=== PATIENT | female | born 1980 | race Caucasian/White ===

== ENCOUNTER 2016-08-17 10:42 | Outpatient (CLI) | payer BC ==
[~2016-08-17] VITALS: Ht 172.7 cm; Wt 77.1 kg
[~2016-08-17 10:42] MED LIST: BIRTH CONTROL PO; HYDR1TAB8 OP; NITR-65 PO; ONDAN4ODT PO
[2016-08-17 10:50] VITALS: BP 121/84
[2016-08-17] MEDS ORDERED: NS W/KCL 20 MEQ/L 1,000 ML IV ONE (11:00)
[2016-08-17 11:08] LABS: BASOPHILS % (AUTO) 0 % (0-10); EOSINOPHILS % (AUTO) 0 % (0-10); LYMPHOCYTES # (AUTO) 1.2 X 10^3 (1.0-4.0); LYMPHOCYTES % (AUTO) 22 % (12-44); MEAN CORPUSCULAR HEMOGLOBIN 28 PG (25-34); MEAN CORPUSCULAR HGB CONC 34 G/DL (32-36); MEAN CORPUSCULAR VOLUME 84 FL (80-99); MEAN PLATELET VOLUME 11.1 FL (7.4-10.4); MONOCYTES # (AUTO) 0.3 X 10^3 (0.0-1.0); MONOCYTES % (AUTO) 6 % (0-12); NEUTROPHILS # (AUTO) 3.8 X 10^3 (1.8-7.8); NEUTROPHILS % (AUTO) 71 % (42-75); PLATELET COUNT 154 10^3/uL (130-400); RED BLOOD COUNT 4.68 10^6/uL (4.35-5.85); RED CELL DISTRIBUTION WIDTH 13.4 % (10.0-14.5); WHITE BLOOD COUNT 5.3 10^3/uL (4.3-11.0)
[2016-08-17 11:42] LABS: ALANINE AMINOTRANSFERASE 10 U/L (0-55); ALBUMIN 4.2 G/DL (3.2-4.5); ANION GAP 11 MMOL/L (5-14); ASPARTATE AMINO TRANSFERASE 19 U/L (5-34); BILIRUBIN,TOTAL 0.7 MG/DL (0.1-1.0); BLOOD UREA NITROGEN 18 MG/DL (7-18); BUN/CREATININE RATIO 23; CALCIUM 8.7 MG/DL (8.5-10.1); CARBON DIOXIDE 22 MMOL/L (21-32); CHLORIDE 108 MMOL/L (98-107); GFR ESTIMATED > 60; GLUCOSE 93 MG/DL (70-105); POTASSIUM 3.7 MMOL/L (3.6-5.0); SODIUM 141 MMOL/L (135-145); TOTAL PROTEIN 7.2 G/DL (6.4-8.2)
[2016-08-18] MEDS ORDERED: ONDA8TAB13 PO (15:18)
[2016-08-18] MEDS ORDERED: FAMO-119 PO (15:18)
[2016-08-18] MEDS ORDERED: ALPR0.254 PO (15:18)
== END 2016-08-17 12:50 ==
LOC: SDC 10:42
PROVIDERS: ATTEND Nurse Practitioner
DX: E86.0 Dehydration (principal); R11.2 Nausea with vomiting, unspecified; R19.7 Diarrhea, unspecified; R00.2 Palpitations
CPT/HCPCS: 36415; 80053; 85025; 93005

== ENCOUNTER 2016-08-18 10:40 | Emergency (ER) | payer BC ==
[~2016-08-18] VITALS: Ht 172.7 cm; Wt 77.1 kg
[2016-08-18] MEDS ORDERED: NS IV 1000 ML 1,000 ML ONE (11:13)
[2016-08-18] MEDS ORDERED: ONDANSETRON 4 MG/2 ML (SDV) Z0FRAN ONE (11:13)
[2016-08-18] MEDS ORDERED: NS IV 1000 ML 1,000 ML IV ONE ×2 (11:17→12:35)
[2016-08-18] MEDS ORDERED: ONDANSETRON 4 MG/2 ML (SDV) Z0FRAN IVP ONE ×2 (11:30→13:30)
[2016-08-18 11:59] LABS: BASOPHILS % (AUTO) 0 % (0-10); EOSINOPHILS % (AUTO) 0 % (0-10); LYMPHOCYTES # (AUTO) 1.3 X 10^3 (1.0-4.0); LYMPHOCYTES % (AUTO) 23 % (12-44); MEAN CORPUSCULAR HEMOGLOBIN 29 PG (25-34); MEAN CORPUSCULAR HGB CONC 34 G/DL (32-36); MEAN CORPUSCULAR VOLUME 84 FL (80-99); MEAN PLATELET VOLUME 11.9 FL (7.4-10.4); MONOCYTES # (AUTO) 0.3 X 10^3 (0.0-1.0); MONOCYTES % (AUTO) 5 % (0-12); NEUTROPHILS # (AUTO) 4.1 X 10^3 (1.8-7.8); NEUTROPHILS % (AUTO) 71 % (42-75); PLATELET COUNT 164 10^3/uL (130-400); RED BLOOD COUNT 4.68 10^6/uL (4.35-5.85); RED CELL DISTRIBUTION WIDTH 13.5 % (10.0-14.5); WHITE BLOOD COUNT 5.7 10^3/uL (4.3-11.0)
--- NOTE | 2016-08-18 12:03 | ED General ---
General Chief Complaint: Cough/Cold/Flu Symptoms Stated Complaint: FLU SYMPTOMS/HEART RACING Nursing Triage Note: PT CO OF HEART RACING, VOMITING, DIARRHEA SINCE TUESDAY. HAD IV FLUIDS YESTERDAY NOT HELPING. HAD FEVER AND STREP THROAT Nursing Sepsis Screen: No Definite Risk Source of Information: Patient, Spouse Exam Limitations: No Limitations History of Present Illness Time Seen by Provider: 12:02 Allergies and Home Medications Allergies Coded Allergies: No Known Drug Allergies (Verified , 06/21/07) Home Medications Hydrocodone Bit/Ibuprofen 1 Each Tablet, 1-2 EACH OP Q 4 - 6 HRS PRN, #20 Ref 0 FOR PAIN Prescribed by: LARS KENNEDY on 11/02/09901 Nitrofurantoin/Nitrofuran Mac 100 Mg Capsule, 1 EACH PO BID, #20 Ref 0 FOR INFECTION Prescribed by: LARS KENNEDY on 11/02/09901 Ondansetron Hcl 4 Mg Tab, 4 MG PO Q4H, #5 Ref 0 FOR NAUSEA AND VOMITING Prescribed by: LARS KENNEDY on 11/02/09901 [ Control] , PO DIALY, (Reported) Past Ukdkart-Sbyrqm-Gcwihp Hx Patient Social History Alcohol Use: Denies Use Recreational Drug Use: No Smoking Status: Never a Smoker Recent Foreign Travel: No Contact w/Someone Who Travel: No Recent Infectious Disease Expo: No Recent Hopitalizations: No Seasonal Allergies Seasonal Allergies: No Surgeries HX Surgeries: Yes (C-SECTIONS X2) Surgeries: Section Respiratory Hx Respiratory Disorders: Yes (08/06/16 ONSET OF COUGH, SORE THROAT, FEVER) Cardiovascular Hx Cardiac Disorders: Yes (08/14/16 NEW ONSET PALPITATIONS W N/V, DIARRHEA) Cardiac Disorders: Palpitations Neurological Hx Neurological Disorders: No Reproductive System Hx Reproductive Disorders: No Genitourinary Hx Genitourinary Disorders: No Gastrointestinal Hx Gastrointestinal Disorders: Yes (08/13/16 ONSET OF N/V, DIARRHEA) Musculoskeletal Hx Musculoskeletal Disorders: No Endocrine Hx Endocrine Disorders: No HEENT HX ENT Disorders: No Cancer Hx Cancer: No Psychosocial Hx Psychiatric Problems: No Integumentary HX Skin/Integumentary Disorder: No (DARK PINK JASON LEFT INNER FOREARM) Blood Transfusions Hx Blood Disorders: No Physical Exam Vital Signs Vital Sign - Last 12Hours 08/18/16 10:45 Temp 98.9 Pulse 87 Resp 20 B/P (MAP) 143/85 Pulse Ox 100 Capillary Refill : Less Than 3 Seconds Progress/Results/Core Measures Results/Orders Lab Results Laboratory Tests Test 08/18/16 10:57 08/18/16 13:10 08/18/16 13:52 Range/Units White Blood Count 5.7 4.3-11.0 10^3/uL Red Blood Count 4.68 4.35-5.85 10^6/uL Hemoglobin 13.4 11.5-16.0 G/DL Hematocrit 39 35-52 % Mean Corpuscular Volume 84 80-99 FL Mean Corpuscular Hemoglobin 29 25-34 PG Mean Corpuscular Hemoglobin Concent 34 32-36 G/DL Red Cell Distribution Width 13.5 10.0-14.5 % Platelet Count 164 130-400 10^3/uL Mean Platelet Volume 11.9 H 7.4-10.4 FL Neutrophils (%) (Auto) 71 42-75 % Lymphocytes (%) (Auto) 23 12-44 % Monocytes (%) (Auto) 5 0-12 % Eosinophils (%) (Auto) 0 0-10 % Basophils (%) (Auto) 0 0-10 % Neutrophils # (Auto) 4.1 1.8-7.8 X 10^3 Lymphocytes # (Auto) 1.3 1.0-4.0 X 10^3 Monocytes # (Auto) 0.3 0.0-1.0 X 10^3 Eosinophils # (Auto) 0.0 0.0-0.3 10^3/uL Basophils # (Auto) 0.0 0.0-0.1 10^3/uL Sodium Level 141 135-145 MMOL/L Potassium Level 3.6 3.6-5.0 MMOL/L Chloride Level 109 H 98-107 MMOL/L Carbon Dioxide Level 23 21-32 MMOL/L Anion Gap 9 5-14 MMOL/L Blood Urea Nitrogen 16 7-18 MG/DL Creatinine 0.84 0.60-1.30 MG/DL Estimat Glomerular Filtration Rate > 60 BUN/Creatinine Ratio 19 Glucose Level 94 70-105 MG/DL Calcium Level 8.6 8.5-10.1 MG/DL Total Bilirubin 0.6 0.1-1.0 MG/DL Aspartate Amino Transf (AST/SGOT) 17 5-34 U/L Alanine Aminotransferase (ALT/SGPT) 10 0-55 U/L Alkaline Phosphatase 64 40-136 U/L Total Protein 7.3 6.4-8.2 G/DL Albumin 4.2 3.2-4.5 G/DL Lipase 14 8-78 U/L Urine Color YELLOW Urine Clarity SLIGHTLY CLOUDY Urine pH 6.5 5-9 Urine Specific [place] 1.010 L 1.016-1.022 Urine Protein NEGATIVE NEGATIVE Urine Glucose (UA) NEGATIVE NEGATIVE Urine Ketones 3+ H NEGATIVE Urine Nitrite NEGATIVE NEGATIVE Urine Bilirubin NEGATIVE NEGATIVE Urine Urobilinogen NORMAL NORMAL MG/DL Urine Leukocyte Esterase NEGATIVE NEGATIVE Urine RBC (Auto) NEGATIVE NEGATIVE Urine RBC NONE /HPF Urine WBC NONE /HPF Urine Squamous Epithelial Cells 0-2 /HPF Urine Crystals NONE /LPF Urine Bacteria NEGATIVE /HPF Urine Casts NONE /LPF Urine Mucus NEGATIVE /LPF Urine Culture Indicated NO Glucometer 75 70-110 MG/DL My Orders Orders - FERMIN FLORENCE Saline Lock/Iv-Start (08/18/16 11:17) Ondansetron Injection (Zofran Injectio (08/18/16 11:30) Ns Iv 1000 Ml (Sodium Chloride 0.9%) (08/18/16 11:17) Cbc With Automated Diff (08/18/16 11:34) Comprehensive Metabolic Panel (08/18/16 11:34) Lipase (08/18/16 11:34) Ua Culture If Indicated (08/18/16 11:34) Ns Iv 1000 Ml (Sodium Chloride 0.9%) (08/18/16 12:35) Ondansetron Injection (Zofran Injectio (08/18/16 13:30) Ekg Tracing (08/18/16 13:53) Clear Liquid (08/18/16 Lunch) Lorazepam Injection (Ativan Injection) (08/18/16 14:15) Medications Given in ED Current Medications Medications Dose Ordered Sig/Shireen Route Start Time Stop Time Status Last Admin Dose Admin Lorazepam 0.5 mg ONCE ONCE IVP 08/18/16 14:15 08/18/16 14:16 DC 08/18/16 14:30 0.5 MG Ondansetron HCl 4 mg ONCE ONCE IVP 08/18/16 13:30 08/18/16 13:31 DC 08/18/16 13:30 4 MG Ondansetron HCl 8 mg ONCE ONCE IVP 08/18/16 11:30 08/18/16 11:31 DC 08/18/16 11:20 8 MG Sodium Chloride 1,000 ml @ 0 mls/hr Q0M ONCE IV 08/18/16 11:17 08/18/16 11:22 DC 08/18/16 11:20 1,000 MLS/HR Sodium Chloride 1,000 ml @ 0 mls/hr Q0M ONCE IV 08/18/16 12:35 08/18/16 12:36 DC 08/18/16 12:35 1,000 MLS/HR Vital Signs/I&O Vital Sign - Last 12Hours 08/18/16 10:45 Temp 98.9 Pulse 87 Resp 20 B/P (MAP) 143/85 Pulse Ox 100 Blood Pressure Mean: 104 Departure Impression Impression: Primary Impression: Volume depletion Additional Impressions: Nausea, vomiting, and diarrhea Upper respiratory infection Anxiety about health Disposition: 01 HOME, SELF-CARE Condition: Improved Departure-Patient Inst. Decision time for Depature: 13:46 Referrals: MADDIE RODRÍGUEZ DO (PCP/Family) Primary Care Physician Patient Instructions: Anxiety, Adult (DC), Dehydration, Adult (DC), [id number], Viral Upper Respiratory Infection, Adult (DC) Add. Discharge Instructions: All discharge instructions reviewed with patient and/or family. Voiced understanding. Medications as instructed. Tylenol [id number]-[id number] as directed for pain, headache, or fever. Ibuprofen 800 mg by mouth every 8 hours as needed for pain, headache, or fever. Clear liquid diet until symptoms improve, then increase diet slowly to a low-fat , bland diet. Use a brown paper bag or mask provided in the emergency department if you're hyperventilating. Follow-up with Dr. Rodríguez this week recheck. Call today or first thing tomorrow morning for appointment time. Return to the emergency department immediately for worsened pain, fever, vomiting, shortness of air, chest pain, rectal bleeding, black stools, changes in behavior, or any other concerns. Scripts Alprazolam (Alprazolam) 0.25 Mg Tablet 0.25 MG PO Q6H Y for ANXIETY, #14 TAB 0 Refills Prov: FERMIN FLORENCE 08/18/16 Famotidine (Pepcid) 20 Mg Tablet 20 MG PO BID, #30 TAB 0 Refills Prov: FERMIN FLORENCE 08/18/16 Ondansetron (Ondansetron Odt) 8 Mg Tab.rapdis 8 MG PO Q6H Y for NAUSEA/VOMITING, #10 TAB 0 Refills Prov: FERMIN FLORENCE 08/18/16 FERMIN FLORENCE Aug 18, 2016 12:03
[2016-08-18 12:11] LABS: ALANINE AMINOTRANSFERASE 10 U/L (0-55); ALBUMIN 4.2 G/DL (3.2-4.5); ANION GAP 9 MMOL/L (5-14); ASPARTATE AMINO TRANSFERASE 17 U/L (5-34); BILIRUBIN,TOTAL 0.6 MG/DL (0.1-1.0); BLOOD UREA NITROGEN 16 MG/DL (7-18); BUN/CREATININE RATIO 19; CALCIUM 8.6 MG/DL (8.5-10.1); CARBON DIOXIDE 23 MMOL/L (21-32); CHLORIDE 109 MMOL/L (98-107); CREATININE SERUM 0.84 MG/DL (0.60-1.30); GFR ESTIMATED > 60; GLUCOSE 94 MG/DL (70-105); LIPASE 14 U/L (8-78); POTASSIUM 3.6 MMOL/L (3.6-5.0); SODIUM 141 MMOL/L (135-145); TOTAL PROTEIN 7.3 G/DL (6.4-8.2)
[2016-08-18 13:16] LABS: BILIRUBIN,URINE NEGATIVE (NEGATIVE); KETONES,URINE 3+ (NEGATIVE); LEUKOCYTE ESTERASE ,URINE NEGATIVE (NEGATIVE); NITRITE,URINE NEGATIVE (NEGATIVE); PH,URINE 6.5 (5-9); PROTEIN,URINE NEGATIVE (NEGATIVE); UROBILINOGEN,URINE NORMAL (NORMAL)
[2016-08-18 13:33] LABS: SQUAMOUS EPITHELIAL CELL,UR 0-2 /HPF
[2016-08-18] MEDS ORDERED: LORazepam INJ 2 MG/ML (ATIVAN) VIAL IVP ONE (14:15)
[2016-08-18] MEDS ORDERED: ONDA8TAB13 PO (15:18)
[2016-08-18] MEDS ORDERED: FAMO-119 PO (15:18)
[2016-08-18] MEDS ORDERED: ALPR0.254 PO (15:18)
[2016-08-18] MEDS ORDERED: ACETAMINOPHEN 500 MG TAB (TYLENOL) PO STA (15:20)
[2016-08-18 15:35] VITALS: BP 139/82
== END 2016-08-18 15:35 | disposition home or self-care (01) ==
LOC: EDUNIT# 10:40 → ER 10:43
DX: R11.2 Nausea with vomiting, unspecified (principal); R19.7 Diarrhea, unspecified; J06.9 Acute upper respiratory infection, unspecified; E86.9 Volume depletion, unspecified; F41.9 Anxiety disorder, unspecified
CPT/HCPCS: 36415; 80053; 81000; 82962; 83690; 85025; 93005; 96361; 96374; 96375; 96376

== ENCOUNTER → 2016-08-19 | Outpatient (CLI) | payer BC ==
[~2016-08-19] VITALS: Ht 172.7 cm; Wt 77.1 kg
[~2016-08-19] MED LIST changes: +ALPR0.254 PO; +FAMO-119 PO; +KCL IV ONE; +NS IV ONE; +ONDA8TAB13 PO
[2016-08-19 15:00] VITALS: BP 115/86
[2016-08-19 19:18] VITALS: BP 115/86
== END ==
LOC: SDC 14:54
PROVIDERS: ATTEND Family Medicine
DX: E86.0 Dehydration (principal); R19.7 Diarrhea, unspecified
CPT/HCPCS: 96360; 96361

== ENCOUNTER 2022-12-13 14:31 | Outpatient (CLI) | payer BC ==
[~2022-12-13] VITALS: Ht 172.7 cm; Wt 77.3 kg
[~2022-12-13 14:31] MED LIST changes: +ALPR.25T PO; -ALPR0.254 PO; -KCL IV ONE; -NS IV ONE
[2022-12-13 14:35] VITALS: BP 123/81
[2022-12-13] MEDS ORDERED: LACTATED RINGERS 1,000 ML IV SCH (15:00)
== END 2022-12-13 16:00 | disposition home or self-care (01) ==
LOC: SDC 14:31
PROVIDERS: ATTEND Internal Medicine
DX: E86.0 Dehydration (principal)
CPT/HCPCS: 96360

== ENCOUNTER 2022-12-17 12:46 | Outpatient (CLI) | payer BC ==
[~2022-12-17] VITALS: Ht 162.6 cm; Wt 77.3 kg
[2022-12-17 12:50] VITALS: BP 131/81
[2022-12-17] MEDS ORDERED: PROMETHAZINE INJ 25 MG/ML (PHENERGAN) AMP IV ONE (13:15)
[2022-12-17] MEDS ORDERED: LACTATED RINGERS 1,000 ML IV ONE (13:15)
[2022-12-21] MEDS ORDERED: ACHD5005 PO (11:21)
[2022-12-21] MEDS ORDERED: DICY10CA12 PO (11:21)
[2022-12-21] MEDS ORDERED: PRD20T PO (11:21)
== END 2022-12-17 14:20 | disposition home or self-care (01) ==
LOC: SDC 12:46
PROVIDERS: ATTEND Nurse Practitioner
DX: E86.0 Dehydration (principal)
CPT/HCPCS: 96360

== ENCOUNTER 2022-12-17 19:25 | Inpatient (IN) | payer BC ==
[~2022-12-17] VITALS: Ht 172.7 cm; Wt 77.0 kg
[2022-12-17] MEDS ORDERED: ONDANSETRON 4 MG/2 ML (SDV) Z0FRAN IV PRN (19:45)
[2022-12-17] MEDS ORDERED: LACTATED RINGERS 1,000 ML IV ONE (19:45)
[2022-12-17 20:02] LABS: BASOPHILS # (AUTO) 0.1 10^3/uL (0.0-0.1); BASOPHILS % (AUTO) 1 % (0-10); EOSINOPHILS # (AUTO) 0.3 10^3/uL (0.0-0.3); EOSINOPHILS % (AUTO) 3 % (0-10); HEMATOCRIT 39 % (35-52); HEMOGLOBIN 13.1 g/dL (11.5-16.0); LYMPHOCYTES # (AUTO) 1.6 10^3/uL (1.0-4.0); LYMPHOCYTES % (AUTO) 15 % (12-44); MEAN CORPUSCULAR HEMOGLOBIN 29 pg (25-34); MEAN CORPUSCULAR HGB CONC 34 g/dL (32-36); MEAN CORPUSCULAR VOLUME 87 fL (80-99); MEAN PLATELET VOLUME 9.8 fL (9.0-12.2); MONOCYTES # (AUTO) 1.3 10^3/uL (0.0-1.0); MONOCYTES % (AUTO) 12 % (0-12); NEUTROPHILS # (AUTO) 7.4 10^3/uL (1.8-7.8); NEUTROPHILS % (AUTO) 69 % (42-75); PLATELET COUNT 401 10^3/uL (130-400); WHITE BLOOD COUNT 10.8 10^3/uL (4.3-11.0)
--- NOTE | 2022-12-17 20:10 | ED GI ---
General Chief Complaint: Abdominal/GI Problems Stated Complaint: FEVER/ BLOODY DIARRHEA/NAUSEA Nursing Triage Note: PT AMB TO ED BY POV WITH C/O DIARRHEA, NAUSEA, AND ABD PAIN. PT REPORTS DIARRHEA X 3 WKS, ABD PAIN AND BLOODY DIARRHEA X 2 WEEKS. PT WAS DIAGNOSED WITH E-COLI AND UTI AT [facility] 2 WEEKS AGO. PT HAS BEEN SEEN BY PCP AND RECEIVED 2 L OF FLUIDS OUTPATIENT TODAY. PT REPORTS UPPER ABD PRESSURE WORSE OVER THE LAST TWO DAYS. SHE BEGAN RUNNING A FEVER THIS EVENING. TOOK TYLENOL APPROX 30 MIN [employer]. Source of Information: Patient History of Present Illness Date Seen by Provider: Dec 17, 2022 Time Seen by Provider: 07:38 Initial Comments PT ARRIVES VIA POV FROM HOME PT HAS HAD DIARRHEA FOR THE LAST 3 WEEKS, SHE HAS HAD GROSSLY BLOODY DIARRHEA WITH BRIGHT RED BLOOD FOR THE LAST 2 WEEKS SHE HAS HAD > 20 STOOLS TODAY AND EVERY DAY FOR THE LAST 3 WEEKS SHE HAS HAD GENERALIZED ABDOMINAL PAIN FOR THE LAST Allergies and Home Medications Allergies Coded Allergies: No Known Drug Allergies (Verified , 06/21/07) Patient Home Medication List ALPRAZolam (Xanax Tablet) 0.25 Mg Tablet, 0.25 MG PO Q6H PRN for ANXIETY Prescribed by: FERMIN FLORENCE on 08/18/161517 Famotidine (Pepcid) 20 Mg Tablet, 20 MG PO BID Prescribed by: FERMIN FLORENCE on 08/18/161517 Hydrocodone Bit/Ibuprofen (Vicoprofen 200-7.5 Mg Tab) 1 Each Tablet, 1-2 EACH OP Q 4 - 6 HRS PRN Prescribed by: LARS KENNEDY on 11/02/09901 Nitrofurantoin/Nitrofuran Mac (Macrobid) 100 Mg Capsule, 1 EACH PO BID Prescribed by: LARS KENNEDY on 11/02/09901 Ondansetron (Ondansetron Odt) 8 Mg Tab.rapdis, 8 MG PO Q6H PRN for NAUSEA/VOMITING Prescribed by: FERMIN FLORENCE on 08/18/161517 Ondansetron Hcl (Zofran Oral Dissolve) 4 Mg Tab, 4 MG PO Q4H Prescribed by: LARS KENNEDY on 11/02/09 09 [ Control] , PO DIALY, (Reported) Entered as Reported by: REBECCA WILEY on 11/02/09 0752 Past Dujoutg-Qzxugl-Nvysjx Hx Patient Social History Tobacco Use?: No Use of E-Cig and/or Vaping dev: No Substance use?: No Alcohol Use?: No Pt feels they are or have been: No Immunizations Up To Date Influenza Vaccine Up-to-Date: No; Not Current First/Initial COVID19 Vaccinat: X2 Seasonal Allergies Seasonal Allergies: No Past Medical History Surgery/Hospitalization HX: C SECT X 2, TUBAL Section Palpitations Last Menstrual Period: Nov 29, 2022 Reproductive Disorders: No Physical Exam Vital Signs Vital Signs - First Documented 12/17/22 19:32 Temp 38.4 Pulse 123 Resp 13 B/P (MAP) 128/82 (97) Pulse Ox 96 O2 Delivery Room Air Capillary Refill : Less Than 3 Seconds Height/Weight/BMI Height: 5'8.00" Weight: 170lbs. 0.0oz. 77.460165wg; 25.00 BMI Method:Stated Focused Exam Lactate Level 12/17/22 19:50: Lactic Acid Level 0.90 Lactic Acid Level Laboratory Tests Test 12/17/22 19:50 Lactic Acid Level 0.90 MMOL/L (0.50-2.00) Progress/Results/Core Measures Results/Orders Lab Results Laboratory Tests Test 12/17/22 19:48 12/17/22 19:50 12/17/22 20:09 Range/Units Influenza Type A (RT-PCR) Not Detected Not Detecte Influenza Type B (RT-PCR) Not Detected Not Detecte SARS-CoV-2 RNA (RT-PCR) Not Detected Not Detecte White Blood Count 10.8 4.3-11.0 10^3/uL Red Blood Count 4.45 3.80-5.11 10^6/uL Hemoglobin 13.1 11.5-16.0 g/dL Hematocrit 39 35-52 % Mean Corpuscular Volume 87 80-99 fL Mean Corpuscular Hemoglobin 29 25-34 pg Mean Corpuscular Hemoglobin Concent 34 32-36 g/dL Red Cell Distribution Width 12.1 10.0-14.5 % Platelet Count 401 H 130-400 10^3/uL Mean Platelet Volume 9.8 9.0-12.2 fL Immature Granulocyte % (Auto) 0 % Neutrophils (%) (Auto) 69 42-75 % Lymphocytes (%) (Auto) 15 12-44 % Monocytes (%) (Auto) 12 0-12 % Eosinophils (%) (Auto) 3 0-10 % Basophils (%) (Auto) 1 0-10 % Neutrophils # (Auto) 7.4 1.8-7.8 10^3/uL Lymphocytes # (Auto) 1.6 1.0-4.0 10^3/uL Monocytes # (Auto) 1.3 H 0.0-1.0 10^3/uL Eosinophils # (Auto) 0.3 0.0-0.3 10^3/uL Basophils # (Auto) 0.1 0.0-0.1 10^3/uL Immature Granulocyte # (Auto) 0.0 0.0-0.1 10^3/uL Erythrocyte Sedimentation Rate 45 H 0-20 MM/HR Prothrombin Time 15.1 H 12.2-14.7 SEC INR Comment 1.2 0.8-1.4 Activated Partial Thromboplast Time 29 24-35 SEC Sodium Level 137 135-145 MMOL/L Potassium Level 3.0 L 3.6-5.0 MMOL/L Chloride Level 100 98-107 MMOL/L Carbon Dioxide Level 24 21-32 MMOL/L Anion Gap 13 5-14 MMOL/L Blood Urea Nitrogen 6 L 7-18 MG/DL Creatinine 0.96 0.60-1.30 MG/DL Estimat Glomerular Filtration Rate 75 BUN/Creatinine Ratio 6 Glucose Level 104 70-105 MG/DL Lactic Acid Level 0.90 0.50-2.00 MMOL/L Calcium Level 8.5 8.5-10.1 MG/DL Corrected Calcium 9.1 8.5-10.1 MG/DL Magnesium Level 2.0 1.6-2.4 MG/DL Total Bilirubin 0.5 0.1-1.0 MG/DL Aspartate Amino Transf (AST/SGOT) 11 5-34 U/L Alanine Aminotransferase (ALT/SGPT) 7 0-55 U/L Alkaline Phosphatase 79 40-136 U/L C-Reactive Protein High Sensitivity 14.51 H 0.00-0.50 MG/DL Total Protein 6.5 6.4-8.2 GM/DL Albumin 3.3 3.2-4.5 GM/DL Amylase Level 18 L 25-125 U/L Lipase 5 L 8-78 U/L Serum Test, Qualitative NEGATIVE NEGATIVE Urine Color YELLOW Urine Clarity CLEAR Urine pH 6.0 5-9 Urine Specific [place] 1.010 L 1.016-1.022 Urine Protein TRACE H NEGATIVE Urine Glucose (UA) NEGATIVE NEGATIVE Urine Ketones 1+ H NEGATIVE Urine Nitrite NEGATIVE NEGATIVE Urine Bilirubin NEGATIVE NEGATIVE Urine Urobilinogen 0.2 < = 1.0 MG/DL Urine Leukocyte Esterase 1+ H NEGATIVE Urine RBC (Auto) 1+ H NEGATIVE Urine RBC 2-5 H /HPF Urine WBC 10-25 H /HPF Urine Squamous Epithelial Cells 2-5 /HPF Urine Crystals NONE /LPF Urine Bacteria LARGE H /HPF Urine Casts NONE /LPF Urine Mucus SMALL H /LPF Urine Culture Indicated CULTURE PENDING My Orders Orders - LARS KENNEDY DO Ed Iv/Invasive Line Start (12/17/22 19:35) Monitor-Rhythm Ecg Trace Only (12/17/22 19:35) Amylase (12/17/22 19:35) Cbc With Automated Diff (12/17/22 19:35) Comprehensive Metabolic Panel (12/17/22 19:35) Hs C Reactive Protein (12/17/22 19:35) Lactic Acid Analyzer (12/17/22 19:35) Lipase (12/17/22 19:35) Magnesium (12/17/22 19:35) Protime With Inr (12/17/22 19:35) Partial Thromboplastin Time (12/17/22 19:35) Ua Culture If Indicated (12/17/22 19:35) Stool Culture (12/17/22 19:35) Fecal Wbc (12/17/22 19:35) Erythrocyte Sedimentation Rate (12/17/22 19:35) Ed Iv/Invasive Line Start (12/17/22 19:35) Lactated Ringers (Lr 1000 Ml Iv Solution (12/17/22 19:45) Covid 19 Inhouse Test (12/17/22 19:35) Blood Culture (12/17/22 19:35) Urine Culture (12/17/22 19:35) Chest 1 View, Ap/Pa Only (12/17/22 19:35) Ed Iv/Invasive Line Start (12/17/22 19:35) Ed Iv/Invasive Line Start (12/17/22 19:35) Vital Signs Adult Sepsis Patie Q15M (12/17/22 19:35) Ondansetron Injection (Zofran Injectio (12/17/22 19:45) O2 (12/17/22 19:35) Remove Rings In Anticipation O (12/17/22 19:35) Influenza A And B By Pcr (12/17/22 19:35) Fecal Wbc (12/17/22 19:35) C Difficile Ag + Toxin A/B. (12/17/22 19:35) Hcg,Qualitative Serum (12/17/22 19:39) Ct Abdomen/Pelvis W (12/17/22 20:30) Iohexol Injection (Omnipaque 350 Mg/Ml 1 (12/17/22 21:00) Received Contrast (Hold Metformin- Contr (12/17/22 21:00) Ns (Ivpb) 100 Ml (Sodium Chloride 0.9% 1 (12/17/22 21:00) Medications Given in ED Current Medications Medications Dose Ordered Sig/Shireen Route Start Time Stop Time Status Last Admin Dose Admin Iohexol 100 ml ONCE ONCE IV 12/17/22 21:00 12/17/22 21:01 DC 12/17/22 20:56 80 ML Lactated Ringer's 1,000 ml @ 0 mls/hr Q0M ONCE IV 12/17/22 19:45 12/17/22 19:46 DC 12/17/22 20:05 999 MLS/HR Ondansetron HCl 4 mg PRN PRN IV 12/17/22 19:45 12/17/22 20:06 DC 12/17/22 20:05 4 MG Sodium Chloride 100 ml ONCE ONCE IV 12/17/22 21:00 12/17/22 21:01 DC 12/17/22 20:56 80 ML Vital Signs/I&O 12/17/22 19:32 Temp 38.4 Pulse 123 Resp 13 B/P (MAP) 128/82 (97) Pulse Ox 96 O2 Delivery Room Air Blood Pressure Mean: [address] ABDOMEN/PELVIS--PER RADIOLOGIST REPORT AT 2127 FINDINGS: Lung bases are clear. The heart is normal in size. The liver demonstrates no focal lesion. The spleen appears normal. The pancreas is normal. The adrenal glands appear normal. The kidneys have a nonobstructing calculus on the right measuring up to 6 mm in size. No hydronephrosis or enhancing lesions are seen. There is wall thickening and enhancement throughout the entire colon. No distended loops of bowel are seen. The appendix is normal. The aorta is normal in caliber. There is no significant adenopathy seen. No free fluid or free air is seen. There is mild heterogeneity and endometrial thickening in the uterus, and there appears to be wall thickening of the cervix. IMPRESSION: 1. Pancolitis, may be infectious or inflammatory. 2. Mild heterogeneity of the uterus, could represent fibroids, consider nonemergent ultrasound to further evaluate. There also appears to be thickening of the cervix, consider direct visualization and tissue sampling. 3. Nonobstructing calculus in the left kidney. Reviewed: Reviewed by Me Departure Impression Primary Impression: Colitis Disposition: ADMITTED INPATIENT Condition: Stable Admissions Decision to Admit Reason: Admit from ER (General) Decision to Admit/Date: Dec 17, 2022 Time/Decision to Admit Time: 20:45 Departure-Patient Inst. Referrals: OSIRIS HERBERT MD (PCP) Primary Care Physician LARS KENNEDY DO Dec 17, 2022 20:10
[2022-12-17 20:15] LABS: BILIRUBIN,URINE NEGATIVE (NEGATIVE); CLARITY,URINE CLEAR; COLOR,URINE YELLOW; GLUCOSE, URINE (UA) NEGATIVE (NEGATIVE); KETONES,URINE 1+ (NEGATIVE); LEUKOCYTE ESTERASE ,URINE 1+ (NEGATIVE); NITRITE,URINE NEGATIVE (NEGATIVE); PROTEIN,URINE TRACE (NEGATIVE)
[2022-12-17 20:17] LABS: INR 1.2 (0.8-1.4); PROTHROMBIN TIME PATIENT 15.1 SEC (12.2-14.7)
[2022-12-17 20:19] LABS: ERYTHROCYTE SEDIMENTATION RATE 45 MM/HR (0-20)
[2022-12-17 20:22] LABS: BACTERIA,URINE LARGE /HPF
[2022-12-17 20:28] LABS: ALBUMIN 3.3 GM/DL (3.2-4.5); BILIRUBIN,TOTAL 0.5 MG/DL (0.1-1.0); CALCIUM 8.5 MG/DL (8.5-10.1); CREATININE SERUM 0.96 MG/DL (0.60-1.30); TOTAL PROTEIN 6.5 GM/DL (6.4-8.2)
--- NOTE | 2022-12-17 20:47 | Diagnostic Imaging Report ---
PATIENT HISTORY: Fever. TECHNIQUE: Single frontal view of the chest. COMPARISON: None. FINDINGS: The lung volumes are normal. No focal consolidation is seen. No large pleural effusion or pneumothorax is seen. The cardiomediastinal silhouette is normal in size and contour. No acute osseous abnormality is seen. IMPRESSION: No acute pulmonary abnormality seen. Dictated by: Dictated on workstation # [id number]
[2022-12-17] MEDS ORDERED: IOHEXOL 350 MG/ML 100 ML (OMNIPAQUE 350) VIAL IV ONE (21:00)
[2022-12-17] MEDS ORDERED: HOLD METFORMIN - RECEIVED CONTRAST 20 ML VIAL IV SCH (21:00)
[2022-12-17] MEDS ORDERED: NS 100 ML (IVPB) BAG IV ONE (21:00)
--- NOTE | 2022-12-17 21:15 | Diagnostic Imaging Report ---
PROCEDURE: CT abdomen and pelvis with contrast. TECHNIQUE: Multiple contiguous axial images were obtained through the abdomen and pelvis after administration of intravenous contrast. Auto Exposure Controls were utilized during the CT exam to meet ALARA standards for radiation dose reduction. All CT scans use one or more of the following dose optimizing techniques: automated exposure control, MA and/or KvP adjustment based on patient size and exam type or iterative reconstruction. INDICATION: Bloody diarrhea, abdominal pain and fever. COMPARISON: None. FINDINGS: Lung bases are clear. The heart is normal in size. The liver demonstrates no focal lesion. The spleen appears normal. The pancreas is normal. The adrenal glands appear normal. The kidneys have a nonobstructing calculus on the right measuring up to 6 mm in size. No hydronephrosis or enhancing lesions are seen. There is wall thickening and enhancement throughout the entire colon. No distended loops of bowel are seen. The appendix is normal. The aorta is normal in caliber. There is no significant adenopathy seen. No free fluid or free air is seen. There is mild heterogeneity and endometrial thickening in the uterus, and there appears to be wall thickening of the cervix. IMPRESSION: 1. Pancolitis, may be infectious or inflammatory. 2. Mild heterogeneity of the uterus, could represent fibroids, consider nonemergent ultrasound to further evaluate. There also appears to be thickening of the cervix, consider direct visualization and tissue sampling. 3. Nonobstructing calculus in the left kidney. Dictated by: Dictated on workstation # [id number]
[2022-12-17] MEDS ORDERED: ACETAMINOPHEN 500 MG TABLET PO ONE (21:45)
[2022-12-17] MEDS ORDERED: CIPROFLOXACIN IV 400MG/200ML 200 ML IV ONE (21:45)
[2022-12-17] MEDS ORDERED: fentaNYL INJ 100 MCG/2 ML AMP IVP ONE (21:45)
[2022-12-17] MEDS ORDERED: metroNIDAZOLE 500MG/100ML IVPB 100 ML IV ONE (21:45)
[2022-12-17] MEDS ORDERED: PANTOPRAZOLE 40 MG (PROTONIX) VIAL IV ONE (21:45)
[2022-12-17 23:09] VITALS: BP 122/79
[2022-12-17] MEDS ORDERED: D5 1/2NS + KCL 20 MEQ/L 1000ML 1,000 ML IV ONE (23:21)
[2022-12-17] MEDS: CIPROFLOXACIN 400 MG/D5W 200 ML (PRE-MIX) IV SCH (23:27)
[2022-12-17] MEDS: D5 1/2NS + KCL 20 MEQ/L 1000ML 1,000 ML IV SCH (23:27)
[2022-12-17] MEDS ORDERED: ACETAMINOPHEN 500 MG TABLET PO PRN (23:30)
[2022-12-18] MEDS: fentaNYL INJ 100 MCG/2 ML AMP IV PRN ×3 (00:50→09:34)
[2022-12-18] MEDS: ONDANSETRON 4 MG/2 ML (SDV) Z0FRAN IV PRN ×5 (00:50→21:51)
[2022-12-18 03:56] VITALS: BP 111/71
[2022-12-18] MEDS: D5 1/2NS + KCL 20 MEQ/L 1000ML 1,000 ML IV SCH ×3 (05:14→17:25)
[2022-12-18] MEDS: metroNIDAZOLE 500 MG/100 ML IVPB (PRE-MIX) IV SCH ×3 (05:17→21:08)
[2022-12-18 05:52] LABS: BASOPHILS # (AUTO) 0.1 10^3/uL (0.0-0.1); BASOPHILS % (AUTO) 1 % (0-10); EOSINOPHILS # (AUTO) 0.3 10^3/uL (0.0-0.3); EOSINOPHILS % (AUTO) 4 % (0-10); HEMATOCRIT 31 % (35-52); HEMOGLOBIN 10.5 g/dL (11.5-16.0); LYMPHOCYTES # (AUTO) 1.2 10^3/uL (1.0-4.0); LYMPHOCYTES % (AUTO) 13 % (12-44); MEAN CORPUSCULAR HEMOGLOBIN 29 pg (25-34); MEAN CORPUSCULAR HGB CONC 34 g/dL (32-36); MEAN CORPUSCULAR VOLUME 87 fL (80-99); MONOCYTES # (AUTO) 1.1 10^3/uL (0.0-1.0); MONOCYTES % (AUTO) 13 % (0-12); NEUTROPHILS # (AUTO) 5.9 10^3/uL (1.8-7.8); NEUTROPHILS % (AUTO) 69 % (42-75); PLATELET COUNT 296 10^3/uL (130-400); WHITE BLOOD COUNT 8.6 10^3/uL (4.3-11.0)
[2022-12-18 06:00] LABS: ALBUMIN 2.5 GM/DL (3.2-4.5); CHLORIDE 103 MMOL/L (98-107); SODIUM 136 MMOL/L (135-145)
[2022-12-18 06:01] LABS: CALCIUM 7.5 MG/DL (8.5-10.1)
[2022-12-18 06:02] LABS: GLUCOSE 121 MG/DL (70-105)
[2022-12-18 06:03] LABS: TOTAL PROTEIN 4.8 GM/DL (6.4-8.2)
[2022-12-18 06:04] LABS: BILIRUBIN,TOTAL 0.4 MG/DL (0.1-1.0); CARBON DIOXIDE 26 MMOL/L (21-32)
[2022-12-18 06:06] LABS: ALKALINE PHOSPHATASE 56 U/L (40-136); GFR ESTIMATED 93
[2022-12-18 06:07] LABS: BUN/CREATININE RATIO 6
[2022-12-18 06:09] LABS: ALANINE AMINOTRANSFERASE < 6 U/L (0-55)
[2022-12-18] MEDS ORDERED: PROMETHAZINE INJ 25 MG/ML (PHENERGAN) AMP IVP PRN (06:45)
[2022-12-18] MEDS ORDERED: SCOPOLAMINE 1.5 MG (TRANSDERM-SCOP) PATCH TD ONE (06:45)
--- NOTE | 2022-12-18 06:45 | History & Physical-Hospitalist ---
History of Present Illness HPI/Chief Complaint Patient is a 42-year-old female with significant past medical history who presented to the emergency department due to abdominal pain and diarrhea. She reports all of her symptoms started around 23 November when she thought she had a GI bug. They have persisted since that time and 2 weeks ago she started to noti ce bright red blood in her stool as well. She reports 20 or more stools a day most of these days. She has crampy abdominal pain. She has been nauseous and not eating well. She was seen at the [place] [facility] and told she had E. coli in her stool in her urine and was sent home with ciprofloxacin. She did not get any better with this. She was seen by her primary care nurse practitioner and prescribed azithromycin but again did not feel any better with this. She developed a fever last night prompting her to seek evaluation again in the emergency room. CT of her abdomen was done and showed pancolitis. She was started on Cipro and Flagyl and admitted. This morning she reports still having crampy abdominal pain and nausea but is improving with current treatment. We discussed potential infectious or inflammatory etiology of this. Surgery is consulted. Source: patient Date Seen 12/18/22 Time Seen by a Provider: 06:10 Attending Physician Mitchel Abbott MD PCP Admitting Physician: Sage Sequeira MD Attending Physician: Sage Sequeira MD Referring Physician Date of Admission Dec 17, 2022 at 22:53 Home Medications & Allergies Home Medications Reviewed patient Home Medication Reconciliation performed by pharmacy medication reconciliations coroner technician and/or nursing. Patients Allergies have been reviewed. Allergies Allergies Coded Allergies No Known Drug Allergies (Verified06/21/07) Past Nelkqha-Zeazkr-Sutyrx Hx Patient Social History Marrital Status: Employed/Student: employed Tobacco Use?: No Smoking Status: Never a Smoker Smokeless Tobacco Frequency: Never a User Use of E-Cig and/or Vaping dev: No Substance use?: No Alcohol Use?: No Pt feels they are or have been: No Immunizations Up To Date First/Initial COVID19 Vaccinat: X2 Seasonal Allergies Seasonal Allergies: No Current Status status: No Advance Directives: No Communicates: Verbally Primary Language: Sudanese Preferred Spoken Language: Sudanese Is interpretation needed?: No Sensory deficits: Vision impairment Implanted or Applied Medical D: None Past Medical History Surgeries: Section Palpitations Review of Systems Constitutional: see HPI Physical Exam Physical Exam Vital Signs Vital Signs - First Documented 12/17/22 19:32 Temp 38.4 Pulse 123 Resp 13 B/P (MAP) 128/82 (97) Pulse Ox 96 O2 Delivery Room Air Capillary Refill : Less Than 3 Seconds Height, Weight, BMI Height: 5'8.00" Weight: 170lbs. 0.0oz. 77.763110ol; 25.81 BMI Method:Stated General Appearance: No Apparent Distress, WD/WN Respiratory: Lungs Clear, No Respiratory Distress Cardiovascular: Regular Rate, Rhythm, No Murmur Gastrointestinal: Normal Bowel Sounds, Non Tender, Soft Extremity: No Calf Tenderness, No Pedal Edema Neurologic/Psychiatric: Alert, Oriented x3, Normal Mood/Affect Skin: Normal Color, Warm/Dry Results Results/Procedures Labs Laboratory Tests 12/17/22 19:50 12/18/22 05:35 Patient resulted labs reviewed. Imaging: Reviewed Imaging Report [facility] [place] NAME: VIELKA RECIO [facility] REC#: [id number] PT STATUS: REG ER : 1980 PHYSICIAN: LARS KENNEDY DO ADMIT DATE: 12/17/22/ER Signed Date of Exam:12/17/22 CHEST 1 VIEW, AP/PA ONLY PATIENT HISTORY: Fever. TECHNIQUE: Single frontal view of the chest. COMPARISON: None. FINDINGS: The lung volumes are normal. No focal consolidation is seen. No large pleural effusion or pneumothorax is seen. The cardiomediastinal silhouette is normal in size and contour. No acute osseous abnormality is seen. IMPRESSION: No acute pulmonary abnormality seen. Dictated by: Dictated on workstation # [id number] Dict: 12/17/222043 Trans: 12/17/222127 [facility] [phone] Interpreted by: MARICARMEN DE LA FUENTE MD Electronically signed by: MARICARMEN DE LA FUENTE MD 12/17/222127 [facility] [place] [place] NAME: VIELKA RECIO [facility] REC#: [id number] PT STATUS: REG ER : 1980 PHYSICIAN: LARS KENNEDY DO ADMIT DATE: 12/17/22/ER Signed Date of Exam:12/17/22 CT ABDOMEN/PELVIS W PROCEDURE: CT abdomen and pelvis with contrast. TECHNIQUE: Multiple contiguous axial images were obtained through the abdomen and pelvis after administration of intravenous contrast. Auto Exposure Controls were utilized during the CT exam to meet ALARA standards for radiation dose reduction. All CT scans use one or more of the following dose optimizing techniques: automated exposure control, MA and/or KvP adjustment based on patient size and exam type or iterative reconstruction. INDICATION: Bloody diarrhea, abdominal pain and fever. COMPARISON: None. FINDINGS: Lung bases are clear. The heart is normal in size. The liver demonstrates no focal lesion. The spleen appears normal. The pancreas is normal. The adrenal glands appear normal. The kidneys have a nonobstructing calculus on the right measuring up to 6 mm in size. No hydronephrosis or enhancing lesions are seen. There is wall thickening and enhancement throughout the entire colon. No distended loops of bowel are seen. The appendix is normal. The aorta is normal in caliber. There is no significant adenopathy seen. No free fluid or free air is seen. There is mild heterogeneity and endometrial thickening in the uterus, and there appears to be wall thickening of the cervix. IMPRESSION: 1. Pancolitis, may be infectious or inflammatory. 2. Mild heterogeneity of the uterus, could represent fibroids, consider nonemergent ultrasound to further evaluate. There also appears to be thickening of the cervix, consider direct visualization and tissue sampling. 3. Nonobstructing calculus in the left kidney. Dictated by: Dictated on workstation # [id number] Dict: 12/17/222105 Trans: 12/17/222127 [facility] [phone] Interpreted by: MARICARMEN DE LA FUENTE MD Electronically signed by: MARICARMEN DE LA FUENTE MD 12/17/222127 Assessment/Plan Admission Diagnosis Colitis Admission Status: Inpatient Order (span 2 midnights) Reason for Inpatient Admission: see below Assessment and Plan Colitis BRBPR Dehydration Hypokalemia Continue Cipro and Flagyl Zofran prn- add phenergan and scopolamine Fentanyl for pain Surgery consulted, appreciate recs Consider steroids if no improvement today Continue IVF- decrease rate, K in fluids Stool cultures ordered, c diff ordered UTI Continue abx as above Await cultures DVT ppx: SCDS Diagnosis/Problems Diagnosis/Problems (1) Colitis Status: Acute (2) UTI (urinary tract infection) SAGE SEQUEIRA MD Dec 18, 2022 06:45
[2022-12-18] MEDS ORDERED: LOPERAMIDE 2 MG (IMODIUM) TABLET PO PRN (07:30)
[2022-12-18] MEDS: PANTOPRAZOLE 40 MG (PROTONIX) VIAL IV SCH (08:32)
[2022-12-18 08:59] VITALS: BP 105/70
[2022-12-18] MEDS: CIPROFLOXACIN 400 MG/D5W 200 ML (PRE-MIX) IV SCH ×2 (11:46→23:54)
[2022-12-18 11:56] VITALS: BP 109/70
[2022-12-18] MEDS ORDERED: HYDROcodone/ACETAMINOPHEN 5 MG/325 MG TABLET PO PRN (13:30)
--- NOTE | 2022-12-18 15:37 | Consultation - Surgery ---
History of Present Illness History of Present Illness Patient Consulted On(caroline/time) 12/18/22 15:24 Time Seen by Provider: 14:03 History of Present Illness Surgery asked to consult regarding Colitis and UTI. HPI per Hospitalist: Patient is a 42-year-old female with significant past medical history who presented to the emergency department due to abdominal pain and diarrhea. She reports all of her symptoms started around 23 November when she thought she had a GI bug. They have persisted since that time and 2 weeks ago she started to notice bright red blood in her stool as well. She reports 20 or more stools a day most of these days. She has crampy abdominal pain. She has been nauseous and not eating well. She was seen at the [place] [facility] and told she had E. coli in her stool in her urine and was sent home with ciprofloxacin. She did not get any better with this. She was seen by her primary care nurse practitioner and prescribed azithromycin but again did not feel any better with this. She developed a fever last night prompting her to seek evaluation again in the emergency room. CT of her abdomen was done and showed pancolitis. She was started on Cipro and Flagyl and admitted. This morning she reports still having crampy abdominal pain and nausea but is improving with current treatment. We discussed potential infectious or inflammatory etiology of this. Surgery is consulted. When I spoke to pt she stated that she thought everything started on November 23, but upon further questioning she did start to have some "stomach pain/problems" on the while up in for her son's golf tournament. She did eat lunch at [email or web address] and had a blackened chicken sandwich, no one else in her family ate the same thing and no one else in her family has similar problems. She did not notice if it was undercooked or fully cooked. She went to the ER because of the diarrhea and not feeling well, stool studies at that time were positive for E. Coli. I looked at her labs, the stool culture results and sensitivity from [place]. C. Diff was negative, as was Salmonella and the E. Coli was sensitive to Ciprofloxacin. At that time she was having 1-2 "loose stools" a day, but then started having upwards of 20 all bloody. She had been going to her primary care, got labs (that were normal), was given IV fluids and even Zofran shots. She stated that usually after fluids she felt much better (even if only for a couple of hours) but on Tuesday after the fluids she didn't feel better at all and then developed a fever of 101. She denied any recent travel and [place] She does not have any family hx of Crohn's or Ulcerative Colitis. She does have a grandmother with colon cancer, but developed it later in life. She does still have periods, that may be a little heavier because she was started on some iron at one of her last visits. Her last pap smear was appx 1 1/2 years ago and was normal; she does not have a LEAD HOUSEKEEPER ph ysician. She denied seeing any hematuria. Allergies and Home Medications Allergies Coded Allergies: No Known Drug Allergies (Verified , 06/21/07) Patient Home Medication List Home Medication List Reviewed: Yes ALPRAZolam (Xanax Tablet) 0.25 Mg Tablet, 0.25 MG PO Q6H PRN for ANXIETY Prescribed by: FERMIN FLORENCE on 08/18/161517 Famotidine (Pepcid) 20 Mg Tablet, 20 MG PO BID Prescribed by: FERMIN FLORENCE on 08/18/161517 Hydrocodone Bit/Ibuprofen (Vicoprofen 200-7.5 Mg Tab) 1 Each Tablet, 1-2 EACH OP Q 4 - 6 HRS PRN Prescribed by: LARS KENNEDY on 11/02/09901 Nitrofurantoin/Nitrofuran Mac (Macrobid) 100 Mg Capsule, 1 EACH PO BID Prescribed by: LARS KENNEDY on 11/02/09901 Ondansetron (Ondansetron Odt) 8 Mg Tab.rapdis, 8 MG PO Q6H PRN for NAUSEA/VOMITING Prescribed by: FERMIN FLORENCE on 08/18/161517 Ondansetron Hcl (Zofran Oral Dissolve) 4 Mg Tab, 4 MG PO Q4H Prescribed by: LARS KENNEDY on 11/02/09901 [ Control] , PO DIALY, (Reported) Entered as Reported by: REBECCA WILEY on 11/02/09 0752 Past Acvxzrk-Mcozys-Dxccti Hx Patient Social History Smoking Status: Never a Smoker Recent Hopitalizations: No Alcohol Use?: No Seasonal Allergies Seasonal Allergies: No Surgeries History of Surgeries: Yes Surgeries: Section, Tubal Ligation Respiratory History of Respiratory Disorde: No Cardiovascular History of Cardiac Disorders: No Cardiac Disorders: Palpitations Neurological History of Neurological Disord: No Reproductive System : No Hx Reproductive Disorders: No LEAD HOUSEKEEPER History: Tubal Ligation Genitourinary History of Genitourinary Disor: Yes Genitourinary Disorders: Kidney Stones, UTI-Chronic Gastrointestinal History of Gastrointestinal Di: Yes Gastrointestinal Disorders: Gastrointestinal Bleed Musculoskeletal History of Musculoskeletal Dis: No Endocrine History of Endocrine Disorders: No HEENT History of HEENT Disorders: No Loss of Vision: Denies Hearing Impairment: Denies Cancer History of Cancer: No Psychosocial History of Psychiatric Problem: No Integumentary History of Skin or Integumenta: No Blood Transfusions History of Blood Disorders: No Family Medical History Significant Family History: Cancer (Grandmother had Colon CA), Other Conditions/Hx (Brother has MS) Review of Systems-General Constitutional: fever, malaise, weakness EENTM: No blurred vision, No mouth swelling, No epistaxis, No throat swelling Respiratory: No cough, No dyspnea on exertion Cardiovascular: No chest pain, No palpitations Gastrointestinal: abdominal pain (very minimal and mostly upper), diarrhea; No hematemesis; loss of appetite, nausea, vomiting (mostly dry heaves), other (hematochezia) Genitourinary: dysuria, frequency; No hematuria Musculoskeletal: No joint pain, No joint swelling, No muscle stiffness Skin: No change in color, No change in hair/nails Psychiatric/Neurological: Denies Anxiety, Denies Depressed, Denies Seizure, Denies Tremors Physical Exam-General Problems Physical Exam Vital Signs Vital Signs - First Documented 12/17/22 19:32 Temp 38.4 Pulse 123 Resp 13 B/P (MAP) 128/82 (97) Pulse Ox 96 O2 Delivery Room Air Capillary Refill : Less Than 3 Seconds General Appearance: WD/WN, mild distress (secondary to illness, looks tired and run-down) Eyes: Bilateral Eye PERRL, Bilateral Eye EOMI HEENT: pharynx normal; No scleral icterus (R), No scleral icterus (L) Neck: non-tender, supple Respiratory: lungs clear, normal breath sounds, no respiratory distress, no accessory muscle use Cardiovascular: regular rate, rhythm, no murmur Gastrointestinal: non tender, soft, no organomegaly, hernia (very tiny umbilical) Back: no CVA tenderness, no vertebral tenderness Extremities: non-tender, no pedal edema, no calf tenderness, normal capillary refill Neurologic/Psychiatric: assistant attorney general II-XII nml as tested, alert, normal mood/affect, oriented x 3 Skin: normal color, warm/dry Lymphatic: no adenopathy (neck, axilla or groin) Data Review Labs Laboratory Tests 12/17/22 19:48: Influenza Type A (RT-PCR) Not Detected, Influenza Type B (RT-PCR) Not Detected, SARS-CoV-2 RNA (RT-PCR) Not Detected 12/17/22 19:50: White Blood Count 10.8, Red Blood Count 4.45, Hemoglobin 13.1, Hematocrit 39, Mean Corpuscular Volume 87, Mean Corpuscular Hemoglobin 29, Mean Corpuscular Hemoglobin Concent 34, Red Cell Distribution Width 12.1, Platelet Count 401H, Mean Platelet Volume 9.8, Immature Granulocyte % (Auto) 0, Neutrophils (%) (Auto) 69, Lymphocytes (%) (Auto) 15, Monocytes (%) (Auto) 12, Eosinophils (%) (Auto) 3, Basophils (%) (Auto) 1, Neutrophils # (Auto) 7.4, Lymphocytes # (Auto) 1.6, Monocytes # (Auto) 1.3H, Eosinophils # (Auto) 0.3, Basophils # (Auto) 0.1, Immature Granulocyte # (Auto) 0.0, Erythrocyte Sedimentation Rate 45H, Prothrombin Time 15.1H, INR Comment 1.2, Activated Partial Thromboplast Time 29, Sodium Level 137, Potassium Level 3.0L, Chloride Level 100, Carbon Dioxide Level 24, Anion Gap 13, Blood Urea Nitrogen 6L, Creatinine 0.96, Estimat Glomerular Filtration Rate 75, BUN/Creatinine Ratio 6, Glucose Level 104, Lactic Acid Level 0.90, Calcium Level 8.5, Corrected Calcium 9.1, Magnesium Level 2.0, Total Bilirubin 0.5, Aspartate Amino Transf (AST/SGOT) 11, Alanine Aminotransferase (ALT/SGPT) 7, Alkaline Phosphatase 79, C-Reactive Protein High Sensitivity 14.51H, Total Protein 6.5, Albumin 3.3, Amylase Level 18L, Lipase 5L, Serum Test, Qualitative NEGATIVE 12/17/22 20:09: Urine Color YELLOW, Urine Clarity CLEAR, Urine pH 6.0, Urine Specific [place] 1.010L, Urine Protein TRACEH, Urine Glucose (UA) NEGATIVE, Urine Ketones 1+H, Urine Nitrite NEGATIVE, Urine Bilirubin NEGATIVE, Urine Urobilinogen 0.2, Urine Leukocyte Esterase 1+H, Urine RBC (Auto) 1+H, Urine RBC 2-5H, Urine WBC 10-25H, Urine Squamous Epithelial Cells 2-5, Urine Crystals NONE, Urine Bacteria LARGEH, Urine Casts NONE, Urine Mucus SMALLH, Urine Culture Indicated CULTURE PENDING 12/18/22 05:35: White Blood Count 8.6, Red Blood Count 3.59L, Hemoglobin 10.5L, Hematocrit 31L, Mean Corpuscular Volume 87, Mean Corpuscular Hemoglobin 29, Mean Corpuscular Hemoglobin Concent 34, Red Cell Distribution Width 12.2, Platelet Count 296, Mean Platelet Volume 10.0, Immature Granulocyte % (Auto) 0, Neutrophils (%) (Auto) 69, Lymphocytes (%) (Auto) 13, Monocytes (%) (Auto) 13H, Eosinophils (%) (Auto) 4, Basophils (%) (Auto) 1, Neutrophils # (Auto) 5.9, Lymphocytes # (Auto) 1.2, Monocytes # (Auto) 1.1H, Eosinophils # (Auto) 0.3, Basophils # (Auto) 0.1, Immature Granulocyte # (Auto) 0.0, Sodium Level 136, Potassium Level 3.0L, Chloride Level 103, Carbon Dioxide Level 26, Anion Gap 7, Blood Urea Nitrogen 5L , Creatinine 0.80, Estimat Glomerular Filtration Rate 93, BUN/Creatinine Ratio 6, Glucose Level 121H, Calcium Level 7.5L, Corrected Calcium 8.7, Total Bilirubin 0.4, Aspartate Amino Transf (AST/SGOT) 11, Alanine Aminotransferase (ALT/SGPT) < 6, Alkaline Phosphatase 56, Total Protein 4.8L, Albumin 2.5L Microbiology 12/17/22 Fecal Leukocyte Stain - Final, Resulted 12/17/22 C. difficile GDH Antigen & Toxins - Final, Resulted 12/17/22 Stool Culture, Resulted Pending 12/17/22 Blood Culture - Preliminary, Resulted No growth Radiology Date of Exam:12/17/22 CT ABDOMEN/PELVIS W PROCEDURE: CT abdomen and pelvis with contrast. TECHNIQUE: Multiple contiguous axial images were obtained through the abdomen and pelvis after administration of intravenous contrast. Auto Exposure Controls were utilized during the CT exam to meet ALARA standards for radiation dose reduction. All CT scans use one or more of the following dose optimizing techniques: automated exposure control, MA and/or KvP adjustment based on patient size and exam type or iterative reconstruction. INDICATION: Bloody diarrhea, abdominal pain and fever. COMPARISON: None. FINDINGS: Lung bases are clear. The heart is normal in size. The liver demonstrates no focal lesion. The spleen appears normal. The pancreas is normal. The adrenal glands appear normal. The kidneys have a nonobstructing calculus on the right measuring up to 6 mm in size. No hydronephrosis or enhancing lesions are seen. There is wall thickening and enhancement throughout the entire colon. No distended loops of bowel are seen. The appendix is normal. The aorta is normal in caliber. There is no significant adenopathy seen. No free fluid or free air is seen. There is mild heterogeneity and endometrial thickening in the uterus, and there appears to be wall thickening of the cervix. IMPRESSION: 1. Pancolitis, may be infectious or inflammatory. 2. Mild heterogeneity of the uterus, could represent fibroids, consider nonemergent ultrasound to further evaluate. There also appears to be thickening of the cervix, consider direct visualization and tissue sampling. 3. Nonobstructing calculus in the left kidney. Dictated by: Dictated on workstation # [id number] Dict: 12/17/222105 Trans: 12/17/222127 [facility] [id number] Interpreted by: MARICARMEN DE LA FUENTE MD Electronically signed by: MARICARMEN DE LA FUENTE MD 12/17/222127 Assessment/Plan Assessment/Plan Assessment/Plan Colitis - entire Colon GI Bleed Anemia Hypokalemia UTI Thickening of Cervix and Uterus I spoke to pt for over an hour, I went through her CT films (reviewing them myself and showing them to pt) and spoke with Dr. Sequeira regarding this case. I talked with the pt about the possible causes of her colitis; 1) infectious - bacteria or virus 2) ischemic 3) auto-immune. She definitely had E. Coli bacteria in the initial stool study, but it doesn't make sense that the Cipro did not take care of it (although I would have sent her home with [facility] as well). Will wait to see what the most recent stool culture grows. Ischemic is very unlikely because it is the entire colon. Dr. Sequeira talked to her about possibly starting steroids. I also gave her the option of Colonoscopy; "to get eyes on the lining of colon and do some biopsies". She stated she didn't think she could do the prep, because of her nausea and vomiting with even liquids at this point. I offered to try a Flexible Sigmoidoscopy to at least visualize a good portion of the colon and still get biopsies. She is ok with this suggestion and therefore will do some enemas in the am and plan for Flexible sigmoidoscopy. Will get consent for this and I discussed with Dr. Sequeira possibly starting steroids after we complete the scope tomorrow. Pt will need more fluids, Potassium replacement, pain management and anti-emetics as needed. I also talked to her about seeing a LEAD HOUSEKEEPER to make sure the uterine thickening was worked up. Monitor labs and await final microbiology. YORDY CAMPBELL DO Dec 18, 2022 15:37
[2022-12-18 16:27] VITALS: BP 99/66
[2022-12-18] MEDS ORDERED: LORazepam 0.5 MG (ATIVAN) TABLET PO PRN (17:45)
[2022-12-18] MEDS ORDERED: LORazepam 0.5 MG (ATIVAN) TABLET ONE (17:47)
[2022-12-18 19:11] VITALS: BP 107/72
[2022-12-18 23:49] VITALS: BP 102/60
[2022-12-19] VITALS (11 sets, daily range): BP systolic 98–125; BP diastolic 61–84
[2022-12-19] MEDS: ONDANSETRON 4 MG/2 ML (SDV) Z0FRAN IV PRN ×3 (01:44→11:39)
[2022-12-19] MEDS: metroNIDAZOLE 500 MG/100 ML IVPB (PRE-MIX) IV SCH ×3 (05:08→22:26)
[2022-12-19 05:50] LABS: HEMATOCRIT 31 % (35-52); HEMOGLOBIN 10.4 g/dL (11.5-16.0); MEAN CORPUSCULAR HEMOGLOBIN 29 pg (25-34); MEAN CORPUSCULAR HGB CONC 34 g/dL (32-36); MEAN CORPUSCULAR VOLUME 87 fL (80-99); MEAN PLATELET VOLUME 9.9 fL (9.0-12.2); PLATELET COUNT 279 10^3/uL (130-400); WHITE BLOOD COUNT 8.6 10^3/uL (4.3-11.0)
[2022-12-19] MEDS: D5 1/2NS + KCL 20 MEQ/L 1000ML 1,000 ML IV SCH ×2 (05:57→22:26)
[2022-12-19 06:07] LABS: POTASSIUM 3.1 MMOL/L (3.6-5.0)
[2022-12-19 06:08] LABS: CALCIUM 7.5 MG/DL (8.5-10.1)
[2022-12-19 06:12] LABS: CREATININE SERUM 0.85 MG/DL (0.60-1.30)
[2022-12-19] MEDS: PANTOPRAZOLE 40 MG (PROTONIX) VIAL IV SCH (08:37)
[2022-12-19] MEDS ORDERED: MIDAZOLAM 2 MG/2 ML (VERSED) VIAL ONE (10:02)
[2022-12-19] MEDS ORDERED: PROPOFOL INJECTION 50 ML IV ONE (10:02)
[2022-12-19] MEDS ORDERED: LACTATED RINGERS 1,000 ML IV ONE (10:13)
--- NOTE | 2022-12-19 10:24 | Progress Note - Surgery ---
Subjective Time Seen by a Provider: 09:51 Subjective/Events-last exam Pt seen and examined, states she still feels run down. Enema's went ok, got some blood with first one and then it cleared up with "maybe a little bit of yellow". Review of Systems General: Fatigue, Malaise Pulmonary: No Dyspnea, No Cough Cardiovascular: No: Chest Pain, Palpitations Gastrointestinal: Abdominal Pain (very minimal); No: Nausea, Vomiting Focused Exam Lactate Level 12/17/22 19:50: Lactic Acid Level 0.90 Objective Exam Vital Signs Date Time Temp Pulse Resp B/P (MAP) Pulse Ox O2 Delivery O2 Flow Rate FiO2 12/19/22 08:08 36.8 94 18 106/64 (78) 99 Room Air 12/19/22 08:00 Room Air 12/19/22 07:00 94 12/19/22 03:07 36.5 93 16 101/65 (77) 97 Room Air 12/19/22 01:01 83 12/18/22 23:49 36.5 89 16 102/60 (74) 97 Room Air 12/18/22 20:48 Room Air 12/18/22 19:45 88 12/18/22 19:11 36.8 91 16 107/72 (84) 97 Room Air 12/18/22 16:27 37.0 88 17 99/66 (77) 97 Room Air 12/18/22 12:27 94 12/18/22 11:56 36.7 86 18 109/70 (83) 98 Room Air I & O 12/19/22 07:00 Intake Total 1120 ml Output Total 1300 ml Balance -180 ml Capillary Refill : Less Than 3 Seconds General Appearance: No Apparent Distress, Chronically ill Respiratory: Lungs Clear, No Accessory Muscle Use, No Respiratory Distress Cardiovascular: Regular Rate, Rhythm, No Murmur Gastrointestinal: non tender, soft, no organomegaly, hernia (very tiny umbilical) Extremity: No Calf Tenderness, No Pedal Edema Neurologic/Psychiatric: Alert, Oriented x3, Normal Mood/Affect Skin: Normal Color, Warm/Dry Results Lab Laboratory Tests 12/19/22 05:42: White Blood Count 8.6, Red Blood Count 3.56L, Hemoglobin 10.4L, Hematocrit 31L, Mean Corpuscular Volume 87, Mean Corpuscular Hemoglobin 29, Mean Corpuscular Hemoglobin Concent 34, Red Cell Distribution Width 12.4, Platelet Count 279, Mean Platelet Volume 9.9, Sodium Level 138, Potassium Level 3.1L, Chloride Level 107, Carbon Dioxide Level 24, Anion Gap 7, Blood Urea Nitrogen 3L, Creatinine 0.85, Estimat Glomerular Filtration Rate 87, BUN/Creatinine Ratio 4, Glucose Level 112H, Calcium Level 7.5L Microbiology 12/17/22 Fecal Leukocyte Stain - Final, Resulted 12/17/22 C. difficile GDH Antigen & Toxins - Final, Resulted 12/17/22 Stool Culture, Resulted Pending 12/17/22 Blood Culture - Preliminary, Resulted No growth 12/17/22 Urine Culture - Final, Complete See Comments Assessment/Plan Assessment/Plan Assessment/Plan Colitis - entire Colon GI Bleed Anemia Hypokalemia UTI Thickening of Cervix and Uterus Plan for Flexible Sigmoidoscopy today, with pictures and biopsies. Hopefully will get more information. Pt had no questions. YORDY CAMPBELL DO Dec 19, 2022 10:24
--- NOTE | 2022-12-19 11:05 | Progress Note-Post Operative ---
Post-Operative Progess Note Surgeon (s)/Car Sales Representative (s) Surgeon YORDY CAMPBELL DO Car Sales Representative: none Pre-Operative Diagnosis Colitis, GI bleed, Anemia Post-Operative Diagnosis Colitis pending path Procedure & Operative Findings Date of Procedure 12/19/22 Procedure Performed/Findings Flexible Sigmoidoscopy with cold biopsy PROCEDURE NOTE: After informed consent was obtained, the patient was brought to the endoscopy suite, placed in bed in left lateral decubitus position. She was administered IV sedation by the POWER CHECKER who then monitored her vitals the entire time, heart rate, blood pressure and pulse ox and the scope was inserted. Immediately upon entering noted severe colitis and took pictures. Pushed in about 60-[address] saw inflamed mucosa, mucous and whitish material. Possibly, some ulcers, but most of the material washed away with flush. I elected to do random biopsies; 4 of them as I was slowly withdrawing the scope. I elected not to retroflex the scope, but did take a picture of the internal hemorrhoids as I pulled the scope out of the rectum. The patient tolerated the procedure. She was recovered in endoscopy suite. Recommended for repeat colonoscopy in 2-3 months to recheck her colitis. Anesthesia Type IV sedation by POWER CHECKER Estimated Blood Loss Estimated blood loss (mL): scant Specimens/Packing Specimens Removed random biopsies from splenic flexure and down YORDY CAMPBELL DO Dec 19, 2022 11:05
[2022-12-19] MEDS: CIPROFLOXACIN 400 MG/D5W 200 ML (PRE-MIX) IV SCH ×2 (11:35→23:40)
[2022-12-19] MEDS: POTASSIUM CL 10MEQ/50ML IVPB 50 ML IV SCH ×3 (11:35→13:46)
--- NOTE | 2022-12-19 12:08 | Progress Note - Hospitalist ---
Subjective HPI/CC On Admission Date Seen by Provider: Dec 19, 2022 Patient is a 42-year-old female with significant past medical history who presented to the emergency department due to abdominal pain and diarrhea. She reports all of her symptoms started around 23 November when she thought she had a GI bug. They have persisted since that time and 2 weeks ago she started to notice bright red blood in her stool as well. She reports 20 or more stools a day most of these days. She has crampy abdominal pain. She has been nauseous and not eating well. She was seen at the [place] [facility] and told she had E. coli in her stool in her urine and was sent home with ciprofloxacin. She did not get any better with this. She was seen by her primary care nurse practitioner and prescribed azithromycin but again did not feel any better with this. She de veloped a fever last night prompting her to seek evaluation again in the emergency room. CT of her abdomen was done and showed pancolitis. She was started on Cipro and Flagyl and admitted. This morning she reports still having crampy abdominal pain and nausea but is improving with current treatment. We discussed potential infectious or inflammatory etiology of this. Surgery is consulted. Subjective/Events-last exam Pt reports doing having a rough night. Was quite nauseated overnight. Scopolamine patch taken off due to dry mouth. Plan for flex sig today. Focused Exam Lactate Level 12/17/22 19:50: Lactic Acid Level 0.90 Objective Exam Vital Signs Vital Signs Date Time Temp Pulse Resp B/P (MAP) Pulse Ox O2 Delivery O2 Flow Rate FiO2 12/19/22 08:08 36.8 94 18 106/64 (78) 99 Room Air Capillary Refill : Less Than 3 Seconds General Appearance: No Apparent Distress Respiratory: Lungs Clear, No Respiratory Distress Cardiovascular: Regular Rate, Rhythm, No Murmur Gastrointestinal: Normal Bowel Sounds, Soft, Distended (mild); No Guarding; Tenderness (mild upper abd) Neurologic/Psychiatric: Alert, Oriented x3 Results/Procedures Lab Laboratory Tests 12/19/22 05:42 Patient resulted labs reviewed. Imaging: Reviewed Imaging Report Assessment/Plan Assessment and Plan Assess & Plan/Chief Complaint Colitis BRBPR Dehydration Hypokalemia Continue Cipro and Flagyl as stool cultures still pending Start steroids given no significant improvement with >24 hours of IV abx DC abx quickly if able Zofran prn- check EKG to check on QTc since has been getting it quite frequently Fentanyl for pain Surgery consulted, appreciate recs Flex sig today Continue IVF. replace K Stool cultures pending, c diff negative UTI Continue abx as above Culture consistent with contamination DC tomorrow to complete 3 day course if not indicated for colitis DVT ppx: SCDS due to BRBPR Diagnosis/Problems Diagnosis/Problems (1) Colitis Status: Acute (2) UTI (urinary tract infection) SGAE BONILLA MD Dec 19, 2022 12:08
[2022-12-19] MEDS ORDERED: LACTATED RINGERS 1,000 ML IV STA (12:11)
--- NOTE | 2022-12-19 12:27 | Anesthesia-General Post-Op ---
MAC Patient Condition Mental Status/LOC: Same as Preop Cardiovascular: Satisfactory Nausea/Vomiting: Absent Respiratory: Satisfactory Pain: Controlled Complications: Absent Post Op Complications Complications None Follow Up Care/Instructions Patient Instructions None needed. Anesthesiology Discharge Order Discharge Order Patient is doing well, no complaints, stable vital signs, no apparent adverse anesthesia problems. No complications reported per nursing. VIPUL ROMANO CRNA Dec 19, 2022 12:27
[2022-12-19] MEDS: methylPREDNISolone 40 MG/ML (Solu-MEDROL) VIAL IV SCH ×2 (13:45→22:26)
[2022-12-20 03:17] VITALS: BP 106/71
[2022-12-20 05:43] LABS: HEMATOCRIT 33 % (35-52); HEMOGLOBIN 10.9 g/dL (11.5-16.0); MEAN CORPUSCULAR HEMOGLOBIN 29 pg (25-34); MEAN CORPUSCULAR HGB CONC 33 g/dL (32-36); MEAN CORPUSCULAR VOLUME 87 fL (80-99); MEAN PLATELET VOLUME 10.3 fL (9.0-12.2); PLATELET COUNT 320 10^3/uL (130-400); WHITE BLOOD COUNT 8.8 10^3/uL (4.3-11.0)
[2022-12-20 05:51] LABS: POTASSIUM 3.7 MMOL/L (3.6-5.0)
[2022-12-20 05:52] LABS: CALCIUM 7.8 MG/DL (8.5-10.1)
[2022-12-20 05:56] LABS: CREATININE SERUM 0.75 MG/DL (0.60-1.30)
[2022-12-20] MEDS: methylPREDNISolone 40 MG/ML (Solu-MEDROL) VIAL IV SCH (06:05)
[2022-12-20] MEDS: metroNIDAZOLE 500 MG/100 ML IVPB (PRE-MIX) IV SCH (06:05)
[2022-12-20 07:33] VITALS: BP 111/60
[2022-12-20] MEDS: PANTOPRAZOLE 40 MG (PROTONIX) VIAL IV SCH (08:54)
--- NOTE | 2022-12-20 10:44 | Progress Note - Hospitalist ---
Subjective HPI/CC On Admission Date Seen by Provider: Dec 20, 2022 Patient is a 42-year-old female with significant past medical history who presented to the emergency department due to abdominal pain and diarrhea. She reports all of her symptoms started around 23 November when she thought she had a GI bug. They have persisted since that time and 2 weeks ago she started to notice bright red blood in her stool as well. She reports 20 or more stools a day most of these days. She has crampy abdominal pain. She has been nauseous and not eating well. She was seen at the [place] [facility] and told she had E. coli in her stool in her urine and was sent home with ciprofloxacin. She did not get any better with this. She was seen by her primary care nurse practitioner and prescribed azithromycin but again did not feel any better with this. She de veloped a fever last night prompting her to seek evaluation again in the emergency room. CT of her abdomen was done and showed pancolitis. She was started on Cipro and Flagyl and admitted. This morning she reports still having crampy abdominal pain and nausea but is improving with current treatment. We discussed potential infectious or inflammatory etiology of this. Surgery is consulted. Subjective/Events-last exam Pt reports doing much better today. Nausea improved. Still having some bloody diarrhea but much improved. Focused Exam Lactate Level 12/17/22 19:50: Lactic Acid Level 0.90 Objective Exam Vital Signs Vital Signs Date Time Temp Pulse Resp B/P (MAP) Pulse Ox O2 Delivery O2 Flow Rate FiO2 12/20/22 07:33 37.2 84 20 111/60 (77) 97 Room Air 12/20/22 03:17 0.00 0.00 Capillary Refill : Less Than 3 Seconds General Appearance: No Apparent Distress Respiratory: Lungs Clear, No Respiratory Distress Cardiovascular: Regular Rate, Rhythm, No Murmur Gastrointestinal: Normal Bowel Sounds, Soft Neurologic/Psychiatric: Alert, Oriented x3 Results/Procedures Lab Laboratory Tests 12/20/22 05:20 Patient resulted labs reviewed. Imaging: Reviewed Imaging Report Assessment/Plan Assessment and Plan Assess & Plan/Chief Complaint Colitis BRBPR Dehydration Hypokalemia DC abx, completed course for UTI Transition to oral steroids Zofran prn- QTc WNL Fentanyl for pain Surgery consulted, appreciate recs Flex sig showed colitis Continue IVF- DC if oral intake is adequate Stool cultures negative, c diff negative Hopefully home tomorrow UTI Completed abx Culture consistent with contamination DVT ppx: SCDS due to BRBPR Diagnosis/Problems Diagnosis/Problems (1) Colitis Status: Acute (2) UTI (urinary tract infection) SAGE BONILLA MD Dec 20, 2022 10:44
[2022-12-20] MEDS ORDERED: predniSONE 20 MG TAB PO ONE (10:45)
[2022-12-20 11:30] VITALS: BP 123/71
--- NOTE | 2022-12-20 14:07 | Progress Note - Surgery ---
Subjective Time Seen by a Provider: 12:51 Subjective/Events-last exam Pt seen and examined, states she feels a little stronger/better today. However, she did have another bloody BM. Review of Systems General: Fatigue Pulmonary: No Dyspnea, No Cough Cardiovascular: No: Chest Pain, Palpitations Gastrointestinal: No: Nausea, Vomiting, Abdominal Pain Genitourinary: No Dysuria, No Frequency Focused Exam Lactate Level 12/17/22 19:50: Lactic Acid Level 0.90 Objective Exam Vital Signs Date Time Temp Pulse Resp B/P (MAP) Pulse Ox O2 Delivery O2 Flow Rate FiO2 12/20/22 11:30 37.0 85 20 123/71 (88) 97 Room Air 12/20/22 08:00 Room Air 12/20/22 07:33 37.2 84 20 111/60 (77) 97 Room Air 12/20/22 03:17 36.8 87 16 106/71 (83) 96 Room Air 0.00 0.00 12/19/22 23:45 36.0 86 16 125/84 (98) 96 Room Air 0.00 0.00 12/19/22 20:00 Room Air 12/19/22 19:50 36.6 92 16 106/74 (85) 96 Room Air 12/19/22 16:40 36.8 88 16 105/69 (81) 97 Room Air I & O 12/20/22 07:00 Intake Total 1900 ml Output Total 1550 ml Balance 350 ml Capillary Refill : Less Than 3 Seconds General Appearance: No Apparent Distress, Chronically ill Respiratory: Lungs Clear, Normal Breath Sounds, No Accessory Muscle Use, No Respiratory Distress Cardiovascular: Regular Rate, Rhythm, No Murmur Gastrointestinal: non tender, soft, no organomegaly, hernia (very tiny umbilical) Extremity: No Calf Tenderness, No Pedal Edema Neurologic/Psychiatric: Alert, Oriented x3 Results Lab Laboratory Tests 12/20/22 05:20: White Blood Count 8.8, Red Blood Count 3.73L, Hemoglobin 10.9L, Hematocrit 33L, Mean Corpuscular Volume 87, Mean Corpuscular Hemoglobin 29, Mean Corpuscular Hemoglobin Concent 33, Red Cell Distribution Width 12.3, Platelet Count 320, Mean Platelet Volume 10.3, Sodium Level 138, Potassium Level 3.7, Chloride Level 108H, Carbon Dioxide Level 23, Anion Gap 7, Blood Urea Nitrogen 3L, Creatinine 0.75, Estimat Glomerular Filtration Rate 101, BUN/Creatinine Ratio 4, Glucose Level 151H, Calcium Level 7.8L Microbiology 12/17/22 Fecal Leukocyte Stain - Final, Complete 12/17/22 C. difficile GDH Antigen & Toxins - Final, Complete 12/17/22 Stool Culture - Final, Complete See Comments 12/17/22 Blood Culture - Preliminary, Resulted No growth 12/17/22 Urine Culture - Final, Complete See Comments Assessment/Plan Assessment/Plan Assessment/Plan Colitis - entire Colon confirmed with Flex sig and biopsies done GI Bleed - secondary to above Anemia Hypokalemia UTI Thickening of Cervix and Uterus Flexible Sigmoidoscopy showed inflammation, edema and possible ulcers for the entire colon viewed. Will await biopsies and pt started on IV steroids. I had long discussion with pt regarding the fact that she would probably go home with some bloody BMs. I am not sure how long it will take the steroids to work. Hopefully will get more information with pathology. Pt had no questions. YORDY CAMPBELL DO Dec 20, 2022 14:07
--- NOTE | 2022-12-20 14:08 | Endoscopy Discharge Instruct ---
Endo Procedure/Findings Findings 1.: Colitis Discharge Instructions - Activity: You might feel a little sleepy until tomorrow. This is due to the medicine you received to relax you. Until tomorrow, you should: NOT drive a car, operate machinery or power tools. NOT drink any alcoholic beverages. NOT make any important decisions or sign importortant papers. Do not return to work until tomorrow, unless otherwise instructed. Resume previous activities tomorrow. Diet: Start by taking liquids. If you tolerate liquids, advance to solid food. 1.: Other Recommendation (Colonoscopy 2-3 weeks after stopping steroids) Notify Physician - If you experience excessive bleeding, unusual abdominal pain, fever, or chest pain, contact your doctor immediately. Follow-Up: Reconcile Patient Problems Problems: (1) Colitis (2) UTI (urinary tract infection) Other Follow up in my office in one week YORDY CAMPBELL DO Dec 20, 2022 14:08
[2022-12-20 16:22] VITALS: BP 109/64
[2022-12-20 20:05] VITALS: BP 104/60
[2022-12-20] MEDS ORDERED: DICYCLOMINE 10 MG CAPSULE PO PRN (20:30)
[2022-12-20] MEDS ORDERED: SIMETHICONE 80 MG (MYLICON) CHEW PO PRN (20:30)
[2022-12-20] MEDS: D5 1/2NS + KCL 20 MEQ/L 1000ML 1,000 ML IV SCH (20:33)
[2022-12-20 23:07] VITALS: BP 103/66
[2022-12-21 03:39] VITALS: BP 117/73
[2022-12-21] MEDS: ONDANSETRON 4 MG/2 ML (SDV) Z0FRAN IV PRN (03:42)
[2022-12-21 05:06] LABS: HEMATOCRIT 32 % (35-52); HEMOGLOBIN 10.6 g/dL (11.5-16.0); MEAN CORPUSCULAR HEMOGLOBIN 29 pg (25-34); MEAN CORPUSCULAR HGB CONC 34 g/dL (32-36); MEAN CORPUSCULAR VOLUME 87 fL (80-99); PLATELET COUNT 335 10^3/uL (130-400); WHITE BLOOD COUNT 12.5 10^3/uL (4.3-11.0)
[2022-12-21 05:19] LABS: POTASSIUM 3.7 MMOL/L (3.6-5.0)
[2022-12-21 05:20] LABS: CALCIUM 7.9 MG/DL (8.5-10.1)
[2022-12-21 05:24] LABS: CREATININE SERUM 0.79 MG/DL (0.60-1.30)
[2022-12-21] MEDS ORDERED: SCOPOLAMINE PATCH REMOVAL TP ONE (07:00)
[2022-12-21] MEDS ORDERED: predniSONE 20 MG TAB PO SCH (07:00)
[2022-12-21 08:03] VITALS: BP 93/60
[2022-12-21] MEDS: PANTOPRAZOLE 40 MG (PROTONIX) VIAL IV SCH (08:49)
[2022-12-21] MEDS ORDERED: PRD20T PO (11:21)
[2022-12-21] MEDS ORDERED: ACHD5005 PO (11:21)
[2022-12-21] MEDS ORDERED: DICY10CA12 PO (11:21)
[2022-12-21 11:42] VITALS: BP 115/63
[2022-12-21 12:21] VITALS: BP 115/63
--- NOTE | 2022-12-21 14:14 | Progress Note - Surgery ---
Subjective Time Seen by a Provider: 11:21 Subjective/Events-last exam Pt seen and examined, states she had a bad night because of stomach cramps. She thinks from eating. However, she feels stonger than yesterday. Thinks she wants to go home. Review of Systems Pulmonary: No Dyspnea, No Cough Cardiovascular: No: Chest Pain, Palpitations Gastrointestinal: Abdominal Pain; No: Nausea, Vomiting Objective Exam Vital Signs Date Time Temp Pulse Resp B/P (MAP) Pulse Ox O2 Delivery O2 Flow Rate FiO2 12/21/22 12:21 37.0 75 20 115/63 94 OxyMask 4.00 12/21/22 11:42 37.0 75 20 115/63 (80) 94 OxyMask 4.00 12/21/22 08:03 37.0 75 20 93/60 (71) 98 Room Air 12/21/22 08:00 Room Air 12/21/22 03:39 36.3 79 16 117/73 (88) 96 Room Air 0.00 0.00 12/20/22 23:07 36.0 94 16 103/66 (78) 96 Room Air 0.00 0.00 12/20/22 20:05 37.2 96 16 104/60 (75) 96 Room Air 12/20/22 20:00 Room Air 12/20/22 16:22 36.8 95 16 109/64 (79) 96 Room Air I & O 12/21/22 07:00 Intake Total 3070 ml Output Total 1350 ml Balance 1720 ml Capillary Refill : Less Than 3 Seconds General Appearance: No Apparent Distress, Chronically ill Respiratory: Lungs Clear, Normal Breath Sounds, No Accessory Muscle Use, No Respiratory Distress Cardiovascular: Regular Rate, Rhythm, No Murmur Gastrointestinal: non tender, soft, no organomegaly, hernia (very tiny umbilical) Extremity: No Calf Tenderness, No Pedal Edema Neurologic/Psychiatric: Alert, Oriented x3 Results Lab Laboratory Tests 12/21/22 04:50: White Blood Count 12.5H, Red Blood Count 3.61L, Hemoglobin 10.6L, Hematocrit 32L , Mean Corpuscular Volume 87, Mean Corpuscular Hemoglobin 29, Mean Corpuscular Hemoglobin Concent 34, Red Cell Distribution Width 12.4, Platelet Count 335, Mean Platelet Volume 10.0, Sodium Level 140, Potassium Level 3.7, Chloride Level 107, Carbon Dioxide Level 24, Anion Gap 9, Blood Urea Nitrogen 5L, Creatinine 0.79, Estimat Glomerular Filtration Rate 95, BUN/Creatinine Ratio 6, Glucose Level 129H, Calcium Level 7.9L Microbiology 12/17/22 Fecal Leukocyte Stain - Final, Complete 12/17/22 C. difficile GDH Antigen & Toxins - Final, Complete 12/17/22 Stool Culture - Final, Complete See Comments 12/17/22 Blood Culture - Preliminary, Resulted No growth 12/17/22 Urine Culture - Final, Complete See Comments Assessment/Plan Assessment/Plan Assessment/Plan Colitis - entire Colon confirmed with Flex sig and biopsies done GI Bleed - secondary to above Anemia Hypokalemia UTI Thickening of Cervix and Uterus Flexible Sigmoidoscopy showed inflammation, edema and possible ulcers for the entire colon viewed. Will await biopsies and pt started on IV steroids. I had long discussion with pt regarding the fact that she would probably go home with some bloody BMs. I am not sure how long it will take the steroids to work. Hopefully will get more information with pathology. Pt had no questions. Pt will stay on steroid high dose until inflammation is gone and then go on taper dose. Follow up in my office in one week. YORDY CAMPBELL DO Dec 21, 2022 14:14
--- NOTE | 2022-12-21 19:00 | Discharge Summary ---
Discharge Summary Hospital Course Problems/Dx: (1) Colitis Status: Acute Hospital Course Date of Admission: Dec 17, 2022 at 22:53 Admission Diagnosis : Colitis Family Physician/Provider: Mitchel Abbott MD Date of Discharge: 12/21/22 Discharge Diagnosis: Possible inflammatory bowel disease Hospital Course: Isatu Gutierrez is a 42 year old female who presented with abdominal pain and diarrhea and was admitted with colitis. CT revealed bueno-colitis. Surgery was consulted and assisted with her care. Her workup was negative for infectious colitis. She had a colonoscopy which confirmed bueno-colitis and biopsies were performed. She was started on steroids and her symptoms began to improve. She will continue steroids until her symptoms improve and should then taper and transition to another medication for maintenance. She should follow up with Dr. Montague next week for biopsy results. She should follow up with Dr. Abbott in about a week. She was discharged home in stable condition. Labs and Pending Lab Test: Laboratory Tests 12/21/22 04:50: White Blood Count 12.5H, Red Blood Count 3.61L, Hemoglobin 10.6L, Hematocrit 32L , Mean Corpuscular Volume 87, Mean Corpuscular Hemoglobin 29, Mean Corpuscular Hemoglobin Concent 34, Red Cell Distribution Width 12.4, Platelet Count 335, Mean Platelet Volume 10.0, Sodium Level 140, Potassium Level 3.7, Chloride Level 107, Carbon Dioxide Level 24, Anion Gap 9, Blood Urea Nitrogen 5L, Creatinine 0.79, Estimat Glomerular Filtration Rate 95, BUN/Creatinine Ratio 6, Glucose Level 129H, Calcium Level 7.9L Microbiology 12/17/22 Fecal Leukocyte Stain - Final, Complete 12/17/22 C. difficile GDH Antigen & Toxins - Final, Complete 12/17/22 Stool Culture - Final, Complete See Comments 12/17/22 Blood Culture - Preliminary, Resulted No growth 12/17/22 Urine Culture - Final, Complete See Comments Home Meds Active Hydrocodone-Acetamin 5-325 mg (Hydrocodone/Acetaminophen) 5 Mg-325 Mg Tablet 1 Ea PO Q4H PRN 5 Days Prednisone 20 Mg Tab 60 Mg PO DAILY@0700 14 Days Dicyclomine HCl 10 Mg Capsule 20 Mg PO Q4H PRN 30 Days Assessment/Pt Instructions See instructions Discharge Planning: >30 minutes discharge planning Discharge Instructions Discharge Diet: Other Diet (bland diet) Activity as Tolerated: Yes Consultations Surgery Discharge Physical Examination Vital Signs Vital Signs Date Time Temp Pulse Resp B/P (MAP) Pulse Ox O2 Delivery O2 Flow Rate FiO2 12/21/22 12:21 37.0 75 20 115/63 94 OxyMask 4.00 General Appearance: No Apparent Distress, WD/WN Cardiovascular: Regular Rate, Rhythm, No Murmur Gastrointestinal: Normal Bowel Sounds, Soft Extremity: Normal Inspection, No Pedal Edema Skin: Normal Color, Warm/Dry Neurologic/Psychiatric: Alert, Normal Mood/Affect Allergies: Coded Allergies: No Known Drug Allergies (Verified , 06/21/07) Discharge Summary Date of Admission Dec 17, 2022 at 22:53 Date of Discharge Dec 21, 2022 at 12:22 Discharge Date: Dec 21, 2022 Discharge Time: 12:22 Admission Diagnosis Colitis Consults/Procedures Consulations Surgery Procedures Colonoscopy with biopsies Discharge Diagnosis (1) Colitis Status: Acute LIANNA DIETZ MD Dec 21, 2022 18:53
== END 2022-12-21 12:22 | disposition home or self-care (01) | DRG 386 ==
LOC: EDUNIT# 19:25 → ER 19:28 → 4TH 22:53
PROVIDERS: ADMIT Family Medicine; ATTEND Internal Medicine
PROC: 0DBN8ZX Excision of Sigmoid Colon, Via Natural or Artificial Opening Endoscopic, Diagnostic (ICD-10-PCS; principal; 2022-12-19 10:15)
DX: K51.00 Ulcerative (chronic) pancolitis without complications (principal); K92.2 Gastrointestinal hemorrhage, unspecified; N39.0 Urinary tract infection, site not specified; E86.0 Dehydration; E87.6 Hypokalemia; D64.9 Anemia, unspecified; Z20.822 Contact with and (suspected) exposure to COVID-19
CPT/HCPCS: 36415; 71045; 74177; 80048; 80053; 81000; 82150; 83605; 83690; 83735; 84703; 85025; 85027; 85610; 85652; 85730; 86141; 87015; 87040; 87045; 87046; 87088; 87324; 87449; 87636; 87899; 89055; 93005; 93041; 96361; 96365; 96375

== ENCOUNTER 2023-01-04 11:29 | Outpatient (CLI) | payer BC ==
[~2023-01-04 11:29] MED LIST changes: +ACHD5005 PO; +DICY10CA12 PO; +PRD20T PO
[2023-01-04 11:40] VITALS: BP 127/83
[2023-01-04] MEDS ORDERED: THIAMINE INJECTION 100 MG, FOLIC ACID INJECTION 1 MG, MULTIVITAMIN INJECTION 10 ML, MAG... IV ONE ×5 (12:00)
[2023-01-04 12:35] LABS: BASOPHILS % (AUTO) 1 % (0-10); EOSINOPHILS % (AUTO) 0 % (0-10); HEMATOCRIT 33 % (35-52); HEMOGLOBIN 10.6 g/dL (11.5-16.0); LYMPHOCYTES # (AUTO) 0.6 10^3/uL (1.0-4.0); LYMPHOCYTES % (AUTO) 7 % (12-44); MEAN CORPUSCULAR HEMOGLOBIN 28 pg (25-34); MEAN CORPUSCULAR HGB CONC 32 g/dL (32-36); MEAN CORPUSCULAR VOLUME 89 fL (80-99); MEAN PLATELET VOLUME 8.8 fL (9.0-12.2); MONOCYTES # (AUTO) 0.2 10^3/uL (0.0-1.0); MONOCYTES % (AUTO) 2 % (0-12); NEUTROPHILS # (AUTO) 6.9 10^3/uL (1.8-7.8); NEUTROPHILS % (AUTO) 89 % (42-75); PLATELET COUNT 397 10^3/uL (130-400); WHITE BLOOD COUNT 7.7 10^3/uL (4.3-11.0)
[2023-01-04 12:58] LABS: ALBUMIN 3.1 GM/DL (3.2-4.5); BILIRUBIN,TOTAL 0.3 MG/DL (0.1-1.0); CALCIUM 8.4 MG/DL (8.5-10.1); CREATININE SERUM 0.8 MG/DL (0.60-1.30); TOTAL PROTEIN 6.1 GM/DL (6.4-8.2)
[2023-01-04 13:17] LABS: BAND NEUTROPHILS 8 %; BASOPHILS % (MANUAL) 0 %; EOSINOPHILS % (MANUAL) 0 %; LYMPHOCYTES % (MANUAL) 10 %; MONOCYTES % (MANUAL) 1 %; NEUTROPHILS % (MANUAL) 81 %; RBC MORPH NORMAL
== END 2023-01-04 17:25 | disposition home or self-care (01) ==
LOC: SDC 11:29
PROVIDERS: ATTEND Surgery
DX: E86.0 Dehydration (principal)
CPT/HCPCS: 36415; 80053; 85007; 85027; 96360; 96361